=== PATIENT | male | born 1960 | race Caucasian/White ===

== ENCOUNTER 2020-09-08 08:39 | Emergency (ER) | payer OTHER ==
[~2020-09-08] VITALS: Ht 180 cm; Wt 116.0 kg
[2020-09-08 09:28] LABS: BILIRUBIN,URINE NEGATIVE (NEGATIVE); CLARITY,URINE CLEAR; COLOR,URINE YELLOW; GLUCOSE, URINE (UA) 3+ (NEGATIVE); KETONES,URINE TRACE (NEGATIVE); LEUKOCYTE ESTERASE ,URINE NEGATIVE (NEGATIVE); NITRITE,URINE NEGATIVE (NEGATIVE); PH,URINE 5.5 (5-9); PROTEIN,URINE TRACE (NEGATIVE)
[2020-09-08 09:28] LABS: BASOPHILS # (AUTO) 0.1 10^3/uL (0.0-0.1); BASOPHILS % (AUTO) 1 % (0-10); EOSINOPHILS # (AUTO) 0.1 10^3/uL (0.0-0.3); EOSINOPHILS % (AUTO) 1 % (0-10); HEMATOCRIT 45 % (40-54); HEMOGLOBIN 15.8 g/dL (13.3-17.7); LYMPHOCYTES # (AUTO) 1.6 X 10^3 (1.0-4.0); LYMPHOCYTES % (AUTO) 19 % (12-44); MEAN CORPUSCULAR HEMOGLOBIN 29 pg (25-34); MEAN CORPUSCULAR HGB CONC 35 g/dL (32-36); MEAN CORPUSCULAR VOLUME 83 fL (80-99); MEAN PLATELET VOLUME 9.4 fL (9.0-12.2); MONOCYTES # (AUTO) 0.6 X 10^3 (0.0-1.0); MONOCYTES % (AUTO) 7 % (0-12); NEUTROPHILS # (AUTO) 6.1 X 10^3 (1.8-7.8); NEUTROPHILS % (AUTO) 72 % (42-75); PLATELET COUNT 243 10^3/uL (130-400); WHITE BLOOD COUNT 8.5 10^3/uL (4.3-11.0)
[2020-09-08 09:29] LABS: ALBUMIN 4.4 GM/DL (3.2-4.5); CHLORIDE 102 MMOL/L (98-107); SODIUM 139 MMOL/L (135-145)
[2020-09-08 09:31] LABS: CALCIUM 9.8 MG/DL (8.5-10.1)
[2020-09-08 09:32] LABS: GLUCOSE 340 MG/DL (70-105); TOTAL PROTEIN 7.8 GM/DL (6.4-8.2)
[2020-09-08 09:33] LABS: CARBON DIOXIDE 21 MMOL/L (21-32)
[2020-09-08 09:34] LABS: BILIRUBIN,TOTAL 1.2 MG/DL (0.1-1.0)
[2020-09-08 09:35] LABS: ALKALINE PHOSPHATASE 85 U/L (40-136); CREATININE SERUM 1.07 MG/DL (0.60-1.30); GFR ESTIMATED > 60
[2020-09-08 09:37] LABS: BUN/CREATININE RATIO 18
[2020-09-08 09:38] LABS: ALANINE AMINOTRANSFERASE 58 U/L (0-55)
[2020-09-08 09:39] LABS: LIPASE 22 U/L (8-78)
[2020-09-08 09:45] LABS: AMORPHOUS SEDIMENT,UR FEW AMOR URATES /LPF; BACTERIA,URINE TRACE /HPF; SQUAMOUS EPITHELIAL CELL,UR 0-2 /HPF; WBC,URINE 0-2 /HPF
[2020-09-08] MEDS ORDERED: ONDANSETRON 4 MG/2 ML (SDV) Z0FRAN IVP ONE (09:45)
[2020-09-08] MEDS ORDERED: fentaNYL INJ 100 MCG/2 ML AMP IVP ONE ×2 (09:45→12:00)
[2020-09-08] MEDS ORDERED: NS IV 1000 ML 1,000 ML IV SCH (09:45)
[2020-09-08] MEDS ORDERED: NS IV 1000 ML 1,000 ML IV ONE (09:45)
[2020-09-08] MEDS ORDERED: inSUlin (REGULAR) HUMAN 1 UNIT/0.01 ML (CHARGE PER UNIT) SC ONE (10:00)
[2020-09-08] MEDS ORDERED: HOLD METFORMIN - RECEIVED CONTRAST 20 ML VIAL IV SCH (10:00)
[2020-09-08] MEDS ORDERED: NS 100 ML (IVPB) BAG IV ONE (10:00)
[2020-09-08] MEDS ORDERED: NS IV 1000 ML 1,000 ML ONE (10:00)
[2020-09-08] MEDS ORDERED: IOHEXOL 350 MG/ML 100 ML (OMNIPAQUE 350) VIAL IV ONE (10:00)
[2020-09-08] MEDS ORDERED: CATHETER FLUSH 10 ML SYR IV PRN (10:00)
--- NOTE | 2020-09-08 10:18 | ED Abdominal Pain ---
General Chief Complaint: Abdominal/GI Problems Stated Complaint: ABD PAIN Nursing Triage Note: PT CO OF ABD PAIN R SIDED 12/06. PT IS VERY DIAPHORETIC, PT STATES WAS SEEN [place] [facility] [place]ERDAY NO BLOOD WORK DONE. CT DONE AND PT WAS GIVEN ANTIBIOTIC SAID HAD POCKETS ON COLON. PT STILL FEELING PAIN 12/06 Source of Information: Patient Exam Limitations: No Limitations History of Present Illness Date Seen by Provider: Sep 08, 2020 Time Seen by Provider: 09:15 Initial Comments Patient to ER by private conveyance from home with chief complaint that he is having some right lower quadrant abdominal pain nonradiating. He has poor appetite has been sweating and chilling but has never had a fever above 100. He is having some nausea no vomiting presently. Normal bowel movements past with his last 1 yesterday. Is passing gas. He has never had a colonoscopy. He went to the [place] to have this checked out yesterday since has been going on for about 10 days and they did a urinalysis and a CT scan and did not see anything. His appendix and gallbladder are intact. They did not do any blood work. The only abdominal surgeries he had was for his lumbar sacral cage and he is concerned that this might be related to that although it was years ago. Allergies and Home Medications Allergies Coded Allergies: Fish Containing Products (Verified Allergy, Unknown, 09/08/20) amitriptyline (Verified Allergy, Unknown, 09/08/20) atorvastatin (Verified Allergy, Unknown, 09/08/20) buprenorphine (Verified Allergy, Unknown, 09/08/20) dulaglutide (Verified Allergy, Unknown, 09/08/20) hydroxyzine (Verified Allergy, Unknown, 09/08/20) naloxone (Verified Allergy, Unknown, 09/08/20) rosuvastatin (Verified Allergy, Unknown, 09/08/20) Patient Home Medication List Home Medication List Reviewed: Yes Review of Systems Review of Systems Constitutional: No chills; diaphoresis; No malaise EENTM: No Blurred Vision, No Double Vision Respiratory: Denies Cough, Denies Shortness of Air Cardiovascular: Denies Chest Pain, Denies Lightheadedness Gastrointestinal: Denies Constipated, Denies Diarrhea; Nausea, Poor Appetite; Denies Poor Fluid Intake, Denies Vomiting Genitourinary: Denies Burning, Denies Discharge Musculoskeletal: back pain; No joint pain Skin: No pruritus, No rash Psychiatric/Neurological: Denies Headache, Denies Numbness All Other Systems Reviewed Negative Unless Noted: Yes Past Gcqvamd-Yzsery-Dnakka Hx Patient Social History Tobacco Use?: No Use of E-Cig and/or Vaping dev: No Substance use?: No Alcohol Use?: No Pt feels they are or have been: No Immunizations Up To Date Second COVID19 Vaccination Marcos: BOTH VACCINES COVID19 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 oz. kg; 35.00 BMI Method: General Appearance: moderate distress, obese HEENT: PERRL/EOMI, pharynx normal Neck: non-tender, full range of motion, supple, normal inspection Respiratory: lungs clear, normal breath sounds, no respiratory distress, no accessory muscle use Cardiovascular: normal peripheral pulses, regular rate, rhythm Gastrointestinal: normal bowel sounds, soft, tenderness (Right lower quadrant mild tenderness to palpation without rebound tenderness, Rovsing sign or Sotelo sign. No psoas sign or other mesenteric signs.) Extremities: normal range of motion, non-tender, normal inspection, no pedal edema, normal capillary refill Back: normal inspection, no CVA tenderness, no vertebral tenderness, muscle spasm (Right paravertebral L2-L4 tenderness to palpation) Neurologic/Psychiatric: alert, normal mood/affect, oriented x 3 Skin: normal color, warm/dry Focused Exam Lactate Level 09/08/20 09:55: Lactic Acid Level 1.72 Lactic Acid Level Laboratory Tests Test 09/08/20 09:55 Lactic Acid Level 1.72 MMOL/L (0.50-2.00) Procedures/Interventions Progress Using a 27-gauge 1/2 inch needle we cleaned the site of maximal tenderness over his right paraspinous lumbar spine with alcohol. We then inserted the needle and aspirated nothing. We injected an admixture of 1 cc Marcaine half percent and Depo-Medrol 40 mg/mL 1 mL. Patient tolerated procedure well. A sterile bandage was placed Progress/Results/Core Measures Results/Orders Lab Results Laboratory Tests Test 09/08/20 09:10 09/08/20 09:21 09/08/20 09:55 09/08/20 12:18 Range/Units White Blood Count 8.5 4.3-11.0 10^3/uL Red Blood Count 5.45 4.30-5.52 10^6/uL Hemoglobin 15.8 13.3-17.7 g/dL Hematocrit 45 40-54 % Mean Corpuscular Volume 83 80-99 fL Mean Corpuscular Hemoglobin 29 25-34 pg Mean Corpuscular Hemoglobin Concent 35 32-36 g/dL Red Cell Distribution Width 13.2 10.0-14.5 % Platelet Count 243 130-400 10^3/uL Mean Platelet Volume 9.4 9.0-12.2 fL Immature Granulocyte % (Auto) 0 % Neutrophils (%) (Auto) 72 42-75 % Lymphocytes (%) (Auto) 19 12-44 % Monocytes (%) (Auto) 7 0-12 % Eosinophils (%) (Auto) 1 0-10 % Basophils (%) (Auto) 1 0-10 % Neutrophils # (Auto) 6.1 1.8-7.8 X 10^3 Lymphocytes # (Auto) 1.6 1.0-4.0 X 10^3 Monocytes # (Auto) 0.6 0.0-1.0 X 10^3 Eosinophils # (Auto) 0.1 0.0-0.3 10^3/uL Basophils # (Auto) 0.1 0.0-0.1 10^3/uL Immature Granulocyte # (Auto) 0.0 0.0-0.1 10^3/uL Sodium Level 139 135-145 MMOL/L Potassium Level 5.0 3.6-5.0 MMOL/L Chloride Level 102 98-107 MMOL/L Carbon Dioxide Level 21 21-32 MMOL/L Anion Gap 16 H 5-14 MMOL/L Blood Urea Nitrogen 19 H 7-18 MG/DL Creatinine 1.07 0.60-1.30 MG/DL Estimat Glomerular Filtration Rate > 60 BUN/Creatinine Ratio 18 Glucose Level 340 H 70-105 MG/DL Calcium Level 9.8 8.5-10.1 MG/DL Corrected Calcium 9.5 8.5-10.1 MG/DL Total Bilirubin 1.2 H 0.1-1.0 MG/DL Aspartate Amino Transf (AST/SGOT) 45 H 5-34 U/L Alanine Aminotransferase (ALT/SGPT) 58 H 0-55 U/L Alkaline Phosphatase 85 40-136 U/L C-Reactive Protein High Sensitivity 0.48 0.00-0.50 MG/DL Total Protein 7.8 6.4-8.2 GM/DL Albumin 4.4 3.2-4.5 GM/DL Lipase 22 8-78 U/L Urine Color YELLOW Urine Clarity CLEAR Urine pH 5.5 5-9 Urine Specific Wirtz >=1.030 1.016-1.022 Urine Protein TRACE H NEGATIVE Urine Glucose (UA) 3+ H NEGATIVE Urine Ketones TRACE H NEGATIVE Urine Nitrite NEGATIVE NEGATIVE Urine Bilirubin NEGATIVE NEGATIVE Urine Urobilinogen 0.2 < = 1.0 MG/DL Urine Leukocyte Esterase NEGATIVE NEGATIVE Urine RBC (Auto) NEGATIVE NEGATIVE Urine RBC NONE /HPF Urine WBC 0-2 /HPF Urine Squamous Epithelial Cells 0-2 /HPF Urine Crystals PRESENT H /LPF Urine Amorphous Sediment FEW CHUNG URATES H /LPF Urine Bacteria TRACE /HPF Urine Casts NONE /LPF Urine Mucus NEGATIVE /LPF Urine Culture Indicated NO Lactic Acid Level 1.72 0.50-2.00 MMOL/L Glucometer 99 70-110 MG/DL My Orders Orders - ADELFO RAMOS Ua Culture If Indicated (09/08/20 08:43) Cbc With Automated Diff (09/08/20 09:07) Comprehensive Metabolic Panel (09/08/20 09:07) Hs C Reactive Protein (09/08/20 09:07) Lipase (09/08/20 09:07) Fentanyl Inj (Sublimaze Injection) (09/08/20 09:45) Ct Abd/Pelv W (Appendicitis) (09/08/20 09:41) Ed Iv/Invasive Line Start (09/08/20 09:41) Ns Iv 1000 Ml (Sodium Chloride 0.9%) (09/08/20 09:45) Ns Iv 1000 Ml (Sodium Chloride 0.9%) (09/08/20 09:45) Ondansetron Injection (Zofran Injectio (09/08/20 09:45) Lactic Acid Analyzer (09/08/20 09:41) Insulin (Regular) Human (Novolin R (Per (09/08/20 10:00) Iohexol Injection (Omnipaque 350 Mg/Ml 1 (09/08/20 10:00) Di Iv Start (Assessment) .IV start (09/08/20 10:00) Received Contrast (Hold Metformin- Contr (09/08/20 10:00) Sodium Chloride Flush (Catheter Flush Sy (09/08/20 10:00) Ns (Ivpb) (Sodium Chloride 0.9% Ivpb Bag (09/08/20 10:00) Ns Iv 1000 Ml (Sodium Chloride 0.9%) (09/08/20 10:00) Methylprednisolone Acetate Inj (Depo-Med (09/08/20 12:00) Accucheck Stat ONCE (09/08/20 11:51) Medications Given in ED Current Medications Medications Dose Ordered Sig/Tiffany Route Start Time Stop Time Status Last Admin Dose Admin Fentanyl Citrate 50 mcg ONCE ONCE IVP 09/08/20 09:45 09/08/20 09:46 DC 09/08/20 10:05 50 MCG Insulin Human Regular 10 unit ONCE ONCE SC 09/08/20 10:00 09/08/20 10:01 DC 09/08/20 10:06 10 UNIT Iohexol 100 ml ONCE ONCE IV 09/08/20 10:00 09/08/20 10:05 DC 09/08/20 10:19 100 ML Methylprednisolone Acetate 40 mg ONCE ONCE IA 09/08/20 12:00 09/08/20 12:01 DC 09/08/20 12:18 40 MG Ondansetron HCl 4 mg ONCE ONCE IVP 09/08/20 09:45 09/08/20 09:46 DC 09/08/20 10:05 4 MG Sodium Chloride 100 ml ONCE ONCE IV 09/08/20 10:00 09/08/20 10:05 DC 09/08/20 10:19 80 ML Sodium Chloride 1,000 ml @ 0 mls/hr Q0M ONCE IV 09/08/20 09:45 09/08/20 09:46 DC 09/08/20 10:05 1,000 MLS/HR Vital Signs/I&O 09/08/20 08:58 Temp 35.7 Pulse 71 Resp 18 B/P (MAP) 139/82 (101) Pulse Ox 96 Blood Pressure Mean: 101 Progress Progress Note #1: Time: 10:16 Progress Note Although his vital signs are stable he is quite sweaty and appears uncomfortable. We'll give him some fentanyl and some fluids as he appears to be dehydrated clinically. Concerns involve appendicitis, adhesions, kidney stone, ureteral infection, less likely ischemic mesentery so we'll get a lactate. He does not have any other history of coronary disease or peripheral arterial disease. He does however have diabetes. We'll give him 10 units of regular insulin for his blood sugar of 340. Last oral intake was yesterday. Progress Note #2: Time: 11:52 Progress Note Patient's pain is still positional. Poking around in his back we did find a point of maximal tenderness lateral to his lumbar spine on the right side which reproduces his symptoms. Suspect perhaps a radiculopathy given his history of back problems. We are going to try an injection of some Marcaine and Depo-Medro l. Recheck his sugars and get him some appropriate insulin. Progress Note #3: Time: 12:50 Progress Note After an injection we went back to check on him he said he is having some improvement although he still having quite a bit of pain. We will send him home with some hydrocodone to do suspect now patient is not having an intra-abdominal process with his normal vital signs normal labs and unremarkable CT of the abdomen and pelvis. I suspect instead he has an lumbar radicular impingement that is reproducible on the right side with paravertebral muscle spasm. We did offer some muscle relaxants and the patient says he has Robaxin at home but he does not like taking it because it makes him nauseated. We will put him out on hydrocodone and he has an appointment with his primary care provider on . We did offer to send him to an orthopedic surgeon and physical therapy locally but he says he would do that through the [place]. He is not having any neurologic deficit or red flag symptoms necessitating an MRI at this moment however it would be reasonable to consider an MRI outpatient if he is not seeing improvement on the steroid injection. His repeat Accu-Chek was 99 so his insulin is working well. Diagnostic Imaging Diagonstic Imaging: CT Plain Films/CT/US/NM/MRI: abdomen, pelvis Comments [facility] [place], [place] NAME: MARY JANE EGAN MED REC#: [id number] PT STATUS: REG ER : 1960 PHYSICIAN: ADELFO RAMOS MD ADMIT DATE: 09/08/20/ER Draft Date of Exam:09/08/20 CT ABD/PELV W (APPENDICITIS) PROCEDURE: CT abdomen and pelvis with contrast, rule out appendicitis. TECHNIQUE: Multiple contiguous axial images were obtained through the abdomen and pelvis after the administration of intravenous contrast. All CT scans use one or more of the following dose optimizing techniques: Automated exposure control, MA and/or KvP adjustment based on patient size and exam type or iterative reconstruction. INDICATION: Right lower quadrant pain. COMPARISON: None available. FINDINGS: Median sternotomy. Prosthetic aortic valve. Tiny calcified granuloma noted within the lung bases. However, multiple additional sub-4 mm pulmonary nodules are present within the bilateral lung bases. No significant hiatal hernia. Diffusely decreased density throughout the liver. The liver is otherwise unremarkable. The spleen is unremarkable. The adrenal glands are unremarkable. The pancreas is unremarkable. The gallbladder is unremarkable. Bilateral renal cysts and additional hypodensities are present. Hypodensity within the inferior pole of the left kidney demonstrates Hounsfield units of near 20, and there is suggestion of a thin peripheral calcification in the wall on the coronal view. Tiny hyperdensities are seen within the central aspect of the bilateral kidneys, right greater than left. This is most prominent on series 601, image 72. Mild bilateral perinephric fat stranding. No hydroureteronephrosis. Scattered vascular calcifications without aneurysmal dilatation of the abdominal aorta. Small fat-containing umbilical hernia. The urinary bladder is unremarkable. The prostate gland is minimally enlarged. The appendix is unremarkable. No bowel obstruction or pneumatosis. No significant adenopathy, free air, or free fluid within the abdomen or pelvis. Mild colonic diverticulosis without CT evidence of diverticulitis. Postsurgical changes at L5/S1. Scattered osseous degenerative changes without acute osseous abnormality. IMPRESSION: The appendix is unremarkable. Bilateral renal cysts and additional hypodensities which are not completely characterized, though may still simply relate to cysts, including within the inferior pole of the left kidney. Renal ultrasound is recommended for further evaluation. Bilateral perinephric fat stranding, which may relate to senescent changes and chronic renal disease, though could also relate to underlying pyelonephritis. Recommend correlation with urinary analysis. Tiny hyperdensities within the central aspect of the bilateral kidneys, favored to relate to early excretion of contrast, though tiny nonobstructing renal calculi would be an additional consideration. Fatty infiltration of the liver. Tiny sub-4 mm bilateral pulmonary nodules with additional small benign calcified granuloma within the lung bases. Recommend a follow-up CT of the chest in one year to ensure stability. Dictated on workstation # [id number] Dict: 09/08/20 1031 Trans: 09/08/20 1046 [id number] Interpreted by: AUBRIE COLUNGA MD Electronically signed by: Reviewed: Reviewed by Me Departure Impression Primary Impression: Lumbar radiculopathy, acute Disposition: 01 HOME, SELF-CARE Condition: Stable Departure-Patient Inst. Decision time for Depature: 12:52 Referrals: NO,LOCAL PHYSICIAN (PCP/Family) Primary Care Physician Patient Instructions: Radiculopathy (DC), Back Stretches on Floor Add. Discharge Instructions: Drink plenty of fluids. Hydrocodone 1 tablet every 6 hours as necessary to keep you functional and relieve pain. Tylenol 650 mg every 8 hours as necessary for pain. Topical creams and IcyHot as well as heating pads over your back. Obtain a back brace and wear it on the days that it helps. Hydrocodone will cause drowsiness and constipation so do not mix with alcohol and make sure you are using MiraLAX to stay regular. Keep your follow-up appoint with your doctor and discuss your suspected nerve root impingement. Consider physical therapy and other modalities to manage your symptoms. The steroid should hang out for about 5 to 7 days in your back and will increase your blood sugar as well as may cause an increased feeling of energy and difficulty getting to sleep at night. All discharge instructions reviewed with patient and/or family. Voiced understanding. Scripts Hydrocodone/Acetaminophen (Hydrocodone-Acetamin 5-325 mg) 1 Each Tablet 1 TAB PO Q6H PRN for PAIN-MODERATE (5-7), #20 TAB 0 Refills Prov: ADELFO RAMOS 09/08/20 ADELFO RAMOS Sep 08, 2020 10:18
--- NOTE | 2020-09-08 10:46 | Diagnostic Imaging Report ---
PROCEDURE: CT abdomen and pelvis with contrast, rule out appendicitis. TECHNIQUE: Multiple contiguous axial images were obtained through the abdomen and pelvis after the administration of intravenous contrast. All CT scans use one or more of the following dose optimizing techniques: Automated exposure control, MA and/or KvP adjustment based on patient size and exam type or iterative reconstruction. INDICATION: Right lower quadrant pain. COMPARISON: None available. FINDINGS: Median sternotomy. Prosthetic aortic valve. Tiny calcified granuloma noted within the lung bases. However, multiple additional sub-4 mm pulmonary nodules are present within the bilateral lung bases. No significant hiatal hernia. Diffusely decreased density throughout the liver. The liver is otherwise unremarkable. The spleen is unremarkable. The adrenal glands are unremarkable. The pancreas is unremarkable. The gallbladder is unremarkable. Bilateral renal cysts and additional hypodensities are present. Hypodensity within the inferior pole of the left kidney demonstrates Hounsfield units of near 20, and there is suggestion of a thin peripheral calcification in the wall on the coronal view. Tiny hyperdensities are seen within the central aspect of the bilateral kidneys, right greater than left. This is most prominent on series 601, image 72. Mild bilateral perinephric fat stranding. No hydroureteronephrosis. Scattered vascular calcifications without aneurysmal dilatation of the abdominal aorta. Small fat-containing umbilical hernia. The urinary bladder is unremarkable. The prostate gland is minimally enlarged. The appendix is unremarkable. No bowel obstruction or pneumatosis. No significant adenopathy, free air, or free fluid within the abdomen or pelvis. Mild colonic diverticulosis without CT evidence of diverticulitis. Postsurgical changes at L5/S1. Scattered osseous degenerative changes without acute osseous abnormality. IMPRESSION: The appendix is unremarkable. Bilateral renal cysts and additional hypodensities which are not completely characterized, though may still simply relate to cysts, including within the inferior pole of the left kidney. Renal ultrasound is recommended for further evaluation. Bilateral perinephric fat stranding, which may relate to senescent changes and chronic renal disease, though could also relate to underlying pyelonephritis. Recommend correlation with urinary analysis. Tiny hyperdensities within the central aspect of the bilateral kidneys, favored to relate to early excretion of contrast, though tiny nonobstructing renal calculi would be an additional consideration. Fatty infiltration of the liver. Tiny sub-4 mm bilateral pulmonary nodules with additional small benign calcified granuloma within the lung bases. Recommend a follow-up CT of the chest in one year to ensure stability. Dictated by: Dictated on workstation # [id number]
[2020-09-08] MEDS ORDERED: methylPREDNISolone 40 MG/ML (DEPO MEDROL) VIAL IA ONE (12:00)
[2020-09-08] MEDS ORDERED: ACHD5005 PO (12:55)
[2020-09-08 13:20] VITALS: BP 139/82
== END 2020-09-08 13:20 | disposition home or self-care (01) ==
LOC: ER 08:41
DX: M54.16 Radiculopathy, lumbar region (principal); E66.9 Obesity, unspecified; Z68.35 Body mass index [BMI] 35.0-35.9, adult
CPT/HCPCS: 36415; 74177; 80053; 81000; 82947; 83605; 83690; 85025; 86141

== ENCOUNTER 2020-09-20 23:40 | Observation (INO) | payer MEDICARE, OTHER ==
[~2020-09-20] VITALS: Ht 180 cm; Wt 111.5 kg
[~2020-09-20 23:40] MED LIST: ACHD5005 PO
[2020-09-21 00:11] LABS: BILIRUBIN,URINE NEGATIVE (NEGATIVE); CLARITY,URINE CLEAR; COLOR,URINE YELLOW; GLUCOSE, URINE (UA) 3+ (NEGATIVE); KETONES,URINE 1+ (NEGATIVE); LEUKOCYTE ESTERASE ,URINE NEGATIVE (NEGATIVE); NITRITE,URINE NEGATIVE (NEGATIVE); PROTEIN,URINE TRACE (NEGATIVE)
[2020-09-21] MEDS ORDERED: NITROGLYCERIN 2% OINT 1 GM UNIT DOSE PACKET TOP ONE (00:15)
[2020-09-21 00:23] LABS: BASOPHILS # (AUTO) 0.1 10^3/uL (0.0-0.1); BASOPHILS % (AUTO) 1 % (0-10); EOSINOPHILS % (AUTO) 0 % (0-10); HEMATOCRIT 42 % (40-54); HEMOGLOBIN 14.4 g/dL (13.3-17.7); LYMPHOCYTES # (AUTO) 1.8 10^3/uL (1.0-4.0); LYMPHOCYTES % (AUTO) 27 % (12-44); MEAN CORPUSCULAR HEMOGLOBIN 29 pg (25-34); MEAN CORPUSCULAR HGB CONC 34 g/dL (32-36); MEAN CORPUSCULAR VOLUME 86 fL (80-99); MEAN PLATELET VOLUME 9.4 fL (9.0-12.2); MONOCYTES # (AUTO) 0.6 10^3/uL (0.0-1.0); MONOCYTES % (AUTO) 9 % (0-12); NEUTROPHILS # (AUTO) 4.2 10^3/uL (1.8-7.8); NEUTROPHILS % (AUTO) 62 % (42-75); PLATELET COUNT 242 10^3/uL (130-400); WHITE BLOOD COUNT 6.7 10^3/uL (4.3-11.0)
[2020-09-21 00:24] LABS: AMPHETAMINE SCREEN, URINE NEGATIVE (NEGATIVE); BARBITURATE SCREEN URINE NEGATIVE (NEGATIVE); BENZODIAZEPINES SCREEN URINE NEGATIVE (NEGATIVE); CANNABINOID SCREEN, URINE POSITIVE (NEGATIVE); COCAINE SCREEN URINE NEGATIVE (NEGATIVE); METHADONE STAT NEGATIVE (NEGATIVE); METHAMPHETAMINE SCREEN URINE S NEGATIVE (NEGATIVE); OPIATE SCREEN URINE NEGATIVE (NEGATIVE); OXYCODONE STAT NEGATIVE (NEGATIVE); PROPOXYPHENE STAT NEGATIVE (NEGATIVE); TRICYCLIC ANTIDEPRESSANTS SCRE NEGATIVE (NEGATIVE)
[2020-09-21 00:25] LABS: BACTERIA,URINE NEGATIVE /HPF
[2020-09-21 00:35] LABS: CHLORIDE 106 MMOL/L (98-107); POTASSIUM 3.5 MMOL/L (3.6-5.0); SODIUM 143 MMOL/L (135-145)
[2020-09-21 00:36] LABS: ALBUMIN 4.3 GM/DL (3.2-4.5)
[2020-09-21 00:37] LABS: AMYLASE 33 U/L (25-125); CALCIUM 9.5 MG/DL (8.5-10.1)
[2020-09-21 00:38] LABS: AMMONIA 39 UMOL/L (11-32); GLUCOSE 271 MG/DL (70-105); TOTAL PROTEIN 7.2 GM/DL (6.4-8.2)
[2020-09-21 00:39] LABS: CARBON DIOXIDE 19 MMOL/L (21-32); FIBRIN DEGRADATION PRODUCTS 0.56 UG/ML (0.00-0.49); PROTHROMBIN TIME PATIENT 13.5 SEC (12.2-14.7)
[2020-09-21 00:40] LABS: BILIRUBIN,TOTAL 1.1 MG/DL (0.1-1.0)
[2020-09-21 00:42] LABS: ALKALINE PHOSPHATASE 67 U/L (40-136); CREATININE SERUM 0.98 MG/DL (0.60-1.30); GFR ESTIMATED 78
[2020-09-21 00:43] LABS: BUN/CREATININE RATIO 24
[2020-09-21 00:44] LABS: ACETAMINOPHEN < 10 UG/ML (10-30)
[2020-09-21 00:45] LABS: ALANINE AMINOTRANSFERASE 53 U/L (0-55); MAGNESIUM 2.1 MG/DL (1.6-2.4)
[2020-09-21 00:46] LABS: CREATINE KINASE 277 U/L (30-200); LIPASE 20 U/L (8-78)
[2020-09-21 00:54] LABS: CREATINE KINASE MB 3.1 NG/ML (<6.6)
[2020-09-21] MEDS ORDERED: OLANZapine 5 MG ODT (ZyPREXA ZYDIS) PO ONE ×2 (01:00→02:15)
[2020-09-21 01:06] LABS: TSH (THYROID ANALYZER) 0.79 UIU/ML (0.35-4.94)
[2020-09-21] MEDS ORDERED: ASPIRIN 81 MG CHEW (CHILDREN'S ASA) PO ONE (02:15)
[2020-09-21] MEDS ORDERED: ENOXAPARIN 40 MG/0.4 ML (LOVENOX) SYR SC ONE (02:30)
[2020-09-21] MEDS ORDERED: meTOprolol SUCCINATE 100 MG (TOPROL XL) TAB PO ONE (02:30)
[2020-09-21] MEDS ORDERED: ENOXAPARIN 80 MG/0.8 ML (LOVENOX) SYR SC ONE (02:30)
[2020-09-21] MEDS ORDERED: NITROGLYCERIN 2% OINT 1 GM UNIT DOSE PACKET ONE (02:37)
[2020-09-21 03:01] VITALS: BP 171/89
--- NOTE | 2020-09-21 03:17 | ED General ---
General Chief Complaint: Altered Mental Status Stated Complaint: ELEVATED TROP / HTN / IDDM / PSYCHOSIS Nursing Triage Note: TO ED [facility]IA [facility] TO ROOM 5. PER EMS PT DROVE TO FIRE STATION. PT DENIED CP THERE AND DENIES CP AT ARRIVAL TO ER, BUT EMS STATES THEY WERE PAGED OUT FOR CHEST PAIN. PT DOES NOT STATE COMPLAINT TO PRESENTING TO FIRE STATION OR ER. PT IS RAMBLING, NONSENSICAL. Source of Information: EMS, Police Exam Limitations: Other (PT IS UNABLE TO PROVIDE ANY INFORMATION--PT IS CONFUSED, TALKING RAPIDLY, NON-STOP AND NON-SENSICAL. ) History of Present Illness Date Seen by Provider: Sep 21, 2020 Allergies and Home Medications Allergies Coded Allergies: Fish Containing Products (Verified Allergy, Unknown, 09/08/20) amitriptyline (Verified Allergy, Unknown, 09/08/20) atorvastatin (Verified Allergy, Unknown, 09/08/20) buprenorphine (Verified Allergy, Unknown, 09/08/20) dulaglutide (Verified Allergy, Unknown, 09/08/20) hydroxyzine (Verified Allergy, Unknown, 09/08/20) naloxone (Verified Allergy, Unknown, 09/08/20) rosuvastatin (Verified Allergy, Unknown, 09/08/20) Home Medications Hydrocodone/Acetaminophen 1 Each Tablet, 1 TAB PO Q6H PRN for PAIN-MODERATE (5- 7) Prescribed by: ADELFO RAMOS on 09/08/20 1255 Past Ztirsjm-Owwgdf-Tyibzn Hx Patient Social History Tobacco Use?: No Substance use?: Yes Substance type: Marijuana Alcohol Use?: No Pt feels they are or have been: No Immunizations Up To Date 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 oz. kg; 35.00 BMI Method: Progress/Results/Core Measures Suspected Sepsis SIRS Temperature: Pulse: 85 Respiratory Rate: 20 Laboratory Tests 09/20/20 00:00: White Blood Count 6.7 Blood Pressure 171 /89 Mean: 136 Laboratory Tests 09/20/20 00:00: Creatinine 0.98, INR Comment 1.0, Platelet Count 242, Total Bilirubin 1.1H Results/Orders Lab Results Laboratory Tests Test 09/20/20 00:00 09/20/20 23:59 09/21/20 00:03 Range/Units White Blood Count 6.7 4.3-11.0 10^3/uL Red Blood Count 4.92 4.30-5.52 10^6/uL Hemoglobin 14.4 13.3-17.7 g/dL Hematocrit 42 40-54 % Mean Corpuscular Volume 86 80-99 fL Mean Corpuscular Hemoglobin 29 25-34 pg Mean Corpuscular Hemoglobin Concent 34 32-36 g/dL Red Cell Distribution Width 13.2 10.0-14.5 % Platelet Count 242 130-400 10^3/uL Mean Platelet Volume 9.4 9.0-12.2 fL Immature Granulocyte % (Auto) 0 % Neutrophils (%) (Auto) 62 42-75 % Lymphocytes (%) (Auto) 27 12-44 % Monocytes (%) (Auto) 9 0-12 % Eosinophils (%) (Auto) 0 0-10 % Basophils (%) (Auto) 1 0-10 % Neutrophils # (Auto) 4.2 1.8-7.8 10^3/uL Lymphocytes # (Auto) 1.8 1.0-4.0 10^3/uL Monocytes # (Auto) 0.6 0.0-1.0 10^3/uL Eosinophils # (Auto) 0.0 0.0-0.3 10^3/uL Basophils # (Auto) 0.1 0.0-0.1 10^3/uL Immature Granulocyte # (Auto) 0.0 0.0-0.1 10^3/uL Prothrombin Time 13.5 12.2-14.7 SEC INR Comment 1.0 0.8-1.4 Activated Partial Thromboplast Time 25 24-35 SEC D-Dimer 0.56 H 0.00-0.49 UG/ML Sodium Level 143 135-145 MMOL/L Potassium Level 3.5 L 3.6-5.0 MMOL/L Chloride Level 106 98-107 MMOL/L Carbon Dioxide Level 19 L 21-32 MMOL/L Anion Gap 18 H 5-14 MMOL/L Blood Urea Nitrogen 24 H 7-18 MG/DL Creatinine 0.98 0.60-1.30 MG/DL Estimat Glomerular Filtration Rate 78 BUN/Creatinine Ratio 24 Glucose Level 271 H 70-105 MG/DL Calcium Level 9.5 8.5-10.1 MG/DL Corrected Calcium 9.3 8.5-10.1 MG/DL Magnesium Level 2.1 1.6-2.4 MG/DL Total Bilirubin 1.1 H 0.1-1.0 MG/DL Aspartate Amino Transf (AST/SGOT) 34 5-34 U/L Alanine Aminotransferase (ALT/SGPT) 53 0-55 U/L Alkaline Phosphatase 67 40-136 U/L Ammonia 39 H 11-32 UMOL/L Total Creatine Kinase 277 H 30-200 U/L Creatine Kinase MB 3.1 <6.6 NG/ML Myoglobin 98.7 H 10.0-92.0 NG/ML Troponin I 0.051 H <0.028 NG/ML C-Reactive Protein High Sensitivity 0.46 0.00-0.50 MG/DL B-Type Natriuretic Peptide 19.7 <100.0 PG/ML Total Protein 7.2 6.4-8.2 GM/DL Albumin 4.3 3.2-4.5 GM/DL Amylase Level 33 25-125 U/L Lipase 20 8-78 U/L TSH [place] Testing 0.79 0.35-4.94 UIU/ML Acetaminophen Level < 10 L 10-30 UG/ML Serum Alcohol < 10 <10 MG/DL Glucometer 263 H 70-110 MG/DL Urine Color YELLOW Urine Clarity CLEAR Urine pH 5.0 5-9 Urine Specific [place] >=1.030 1.016-1.022 Urine Protein TRACE H NEGATIVE Urine Glucose (UA) 3+ H NEGATIVE Urine Ketones 1+ H NEGATIVE Urine Nitrite NEGATIVE NEGATIVE Urine Bilirubin NEGATIVE NEGATIVE Urine Urobilinogen 0.2 < = 1.0 MG/DL Urine Leukocyte Esterase NEGATIVE NEGATIVE Urine RBC (Auto) NEGATIVE NEGATIVE Urine RBC NONE /HPF Urine WBC NONE /HPF Urine Squamous Epithelial Cells 2-5 /HPF Urine Crystals NONE /LPF Urine Bacteria NEGATIVE /HPF Urine Casts NONE /LPF Urine Mucus MODERATE H /LPF Urine Culture Indicated NO Urine Opiates Screen NEGATIVE NEGATIVE Urine Oxycodone Screen NEGATIVE NEGATIVE Urine Methadone Screen NEGATIVE NEGATIVE Urine Propoxyphene Screen NEGATIVE NEGATIVE Urine Barbiturates Screen NEGATIVE NEGATIVE Ur Tricyclic Antidepressants Screen NEGATIVE NEGATIVE Urine Phencyclidine Screen NEGATIVE NEGATIVE Urine Amphetamines Screen NEGATIVE NEGATIVE Urine Methamphetamines Screen NEGATIVE NEGATIVE Urine Benzodiazepines Screen NEGATIVE NEGATIVE Urine Cocaine Screen NEGATIVE NEGATIVE Urine Cannabinoids Screen POSITIVE H NEGATIVE My Orders Orders - RAVI MCDUFFIE DO Accucheck Stat ONCE (09/20/20 23:49) Ed Iv/Invasive Line Start (09/20/20 23:49) Ekg Tracing (09/20/20 23:49) O2 (09/20/20 23:49) Monitor-Rhythm Ecg Trace Only (09/20/20 23:49) Acetaminophen (09/20/20 23:49) Alcohol (09/20/20 23:49) Ammonia (09/20/20 23:49) Amylase (09/20/20 23:49) BNP (09/20/20 23:49) Cbc With Automated Diff (09/20/20 23:49) Comprehensive Metabolic Panel (09/20/20 23:49) Creatine Kinase (09/20/20 23:49) Creatine Kinase Mb (09/20/20 23:49) Hs C Reactive Protein (09/20/20 23:49) Fibrin Degradation Products (09/20/20 23:49) Drug Screen Stat (Urine) (09/20/20 23:49) Lactic Acid Analyzer (09/20/20 23:49) Lipase (09/20/20 23:49) Magnesium (09/20/20 23:49) Protime With Inr (09/20/20 23:49) Partial Thromboplastin Time (09/20/20 23:49) Thyroid Analyzer (09/20/20 23:49) Ua Culture If Indicated (09/20/20 23:49) Myoglobin Serum (09/20/20 23:49) Troponin I (09/20/20 23:49) Nitroglycerin Ointment (Nitrobid Ointme (09/21/20 00:15) Ct Head Wo-R/O Stroke (09/21/20 00:13) Chest 1 View, Ap/Pa Only (09/21/20 00:13) Olanzapine Orally Dissolve Tab (Zyprexa (09/21/20 01:00) Medications Given in ED Current Medications Medications Dose Ordered Sig/Tiffany Route Start Time Stop Time Status Last Admin Dose Admin Nitroglycerin 1 inch ONCE ONCE TOP 09/21/20 00:15 09/21/20 00:16 DC 09/21/20 00:14 1 INCH Olanzapine 5 mg ONCE ONCE PO 09/21/20 01:00 09/21/20 01:01 DC 09/21/20 01:01 5 MG Vital Signs/I&O 09/20/20 23:54 Temp 36.7 Pulse 89 Resp 20 B/P (MAP) 197/106 (136) O2 Delivery Room Air Capillary Refill : Less Than 3 Seconds Blood Pressure Mean: 136 Point of Care Testing Finger Stick Blood Glucose: 263 Blood Glucose Action Taken: DR. MCDUFFIE NOTIFIED. ECG Initial ECG Impression Date: Sep 20, 2020 Initial ECG Impression Time: 23:43 Initial ECG Rate: 94 Initial ECG Rhythm: Normal Sinus (RBBB) Initial ECG Comparisson: No Previous ECG Available (BUT RBBB IS CHRONIC, PER [facility] ) Diagnostic Imaging Comments CXR--NO ACUTE PROCESS, PENDING RADIOLOGIST REVIEW CT HEAD--NO ACUTE PROCESS, PER [facility] VIA FAX AT 0134 AND 0152 Reviewed: Reviewed by Me Departure Communication (Admissions) Family Conversation 0145--SPOKE WITH FAN PT'S FRIEND. SHE LIVES IN [place], [place]. SHE REPORTS THAT PSYCHOSIS IS A CHRONIC PROBLEM, AND PT WAS JUST ADMITTED TO [facility] TO THE [facility], AND RELEASED ON Monday09/15/20 FOR PSYCHOSIS. SHE HAS BEEN STAYING HERE WITH HIM SINCE Monday09/17/20, UNTIL LAST NIGHT / SATU NIGHT 09/19/20. SHE STATES THAT HIS BEHAVIOR WAS THE SAME WHEN SHE LEFT LAST NIGHT, IT IS TONIGHT--TALKING NON-STOP, NOT MAKING SENSE, CONFUSED, RAMBLING. SHE STATES THIS IS A CHRONIC PROBLEM AND NOTHING NEW IN ANY WAY. SHE DOES NOT KNOW IF PT HAS BEEN TAKING HIS MEDICATIONS OR NOT. SHE DOES REPORT THAT SHE HAS TALKED WITH THE PATIENT THROUGHOUT THE DAY TODAY AND SHE STATES THAT HE HAS TAKEN NITROGLYCERINE A COUPLE OF TIMES TODAY. SHE REPORTS THAT PT'S OVER A YEAR AGO, AND HIS DOG IN THE LAST COUPLE OF WEEKS. 0150--CALLED [facility], SPOKE WITH DR. MARVIN, ER PHYSICIAN. THEY ARE CURRENTLY ON DIVERSION AND HAVE NO BEDS AVAILABLE. HE DOES VERIFY THAT THE RBBB SHOWING ON PT'S EKG TONIGHT IS CHRONIC. 0158--SPOKE WITH DR. DIAZ, HOSPITALIST, ACCEPTS PT FOR ADMIT. 0204--REPORT GIVEN TO E-ICU PHYSICIAN. NO ADDITIONAL RECOMMENDATIONS AT THIS TIME 0230--SPOKE WITH DR. MELTON FOR CARDIOLOGY CONSULT. RECOMMENDATIONS NOTED. Impression Primary Impression: Elevated troponin Additional Impressions: Uncontrolled hypertension Diabetes mellitus, insulin dependent (IDDM), uncontrolled Psychosis HX OF CAD WITH CABG Disposition: ADMITTED INPATIENT Condition: Stable Admissions Decision to Admit Reason: Admit from ER (General) Decision to Admit/Date: Sep 21, 2020 Time/Decision to Admit Time: 02:00 Departure-Patient Inst. Referrals: NO,LOCAL PHYSICIAN (PCP/Family) Primary Care Physician RAVI MCDUFFIE DO Sep 21, 2020 03:17
[2020-09-21] MEDS ORDERED: NS IV 1000 ML 1,000 ML ONE (03:22)
[2020-09-21] MEDS ORDERED: LORazepam INJ 2 MG/ML (ATIVAN) VIAL IV PRN (03:45)
[2020-09-21] MEDS ORDERED: OLANZapine 5 MG ODT (ZyPREXA ZYDIS) PO PRN (03:45)
[2020-09-21] MEDS ORDERED: hydrALAZINE (APESOLINE) 20 MG/ML VIAL IV PRN (03:45)
[2020-09-21] MEDS ORDERED: HALOPERIDOL 5 MG/ML (HALDOL) VIAL IM/IV PRN (03:45)
[2020-09-21] MEDS ORDERED: NS IV 1000 ML 1,000 ML IV SCH (03:45)
[2020-09-21] MEDS ORDERED: morphine INJ 4 MG/ML 1 ML (VIAL/SYRINGE) IV PRN (04:00)
[2020-09-21] MEDS ORDERED: ONDANSETRON 4 MG/2 ML (SDV) Z0FRAN IVP PRN (04:00)
[2020-09-21 04:49] LABS: BASOPHILS % (AUTO) 1 % (0-10); EOSINOPHILS % (AUTO) 0 % (0-10); HEMATOCRIT 39 % (40-54); HEMOGLOBIN 13.2 g/dL (13.3-17.7); LYMPHOCYTES # (AUTO) 1.4 10^3/uL (1.0-4.0); LYMPHOCYTES % (AUTO) 25 % (12-44); MEAN CORPUSCULAR HEMOGLOBIN 29 pg (25-34); MEAN CORPUSCULAR HGB CONC 34 g/dL (32-36); MEAN CORPUSCULAR VOLUME 87 fL (80-99); MEAN PLATELET VOLUME 9.3 fL (9.0-12.2); MONOCYTES # (AUTO) 0.5 10^3/uL (0.0-1.0); MONOCYTES % (AUTO) 8 % (0-12); NEUTROPHILS # (AUTO) 3.6 10^3/uL (1.8-7.8); NEUTROPHILS % (AUTO) 66 % (42-75); PLATELET COUNT 203 10^3/uL (130-400); WHITE BLOOD COUNT 5.6 10^3/uL (4.3-11.0)
[2020-09-21 05:04] LABS: POTASSIUM 3.5 MMOL/L (3.6-5.0)
[2020-09-21 05:05] LABS: CALCIUM 8.9 MG/DL (8.5-10.1)
[2020-09-21 05:09] LABS: CREATININE SERUM 0.85 MG/DL (0.60-1.30); PHOSPHORUS 3.1 MG/DL (2.3-4.7)
[2020-09-21 05:11] LABS: MAGNESIUM 2.1 MG/DL (1.6-2.4)
[2020-09-21] MEDS: POTASSIUM CL 10MEQ/50ML IVPB 50 ML IV SCH ×2 (05:33→07:12)
--- NOTE | 2020-09-21 05:55 | Diagnostic Imaging Report ---
Clinical indication: Patient with confusion and hypertension. Exam: Axial CT scan of the brain without IV contrast with coronal and sagittal reformatted images. Auto Exposure Controls were utilized during the CT exam to meet ALARA standards for radiation dose reduction. Comparison: None. Findings: There is skull streak artifact which obscures portions of the brainstem, posterior fossa, and portions of the brain near the skull. There is no evidence of acute cerebral infarct, intracranial hemorrhage, or gross mass effect. Mild brain parenchymal volume loss is seen. There are small patchy areas of low-attenuation white matter changes involving both cerebral hemispheres, likely representing mild chronic small vessel ischemic disease. There is normal arevalo-white matter distinction. There is no significant midline shift or herniation. There is no evidence of hydrocephalus. The basal cisterns are unremarkable. The skull, extracranial soft tissue, and orbits are unremarkable. The paranasal sinuses are unremarkable. Temporal bones show no significant abnormality. Impression: 1: Age-related brain parenchymal changes with no acute intracranial process. I agree with [facility] report. Dictated by: Dictated on workstation # [id number]
[2020-09-21] MEDS ORDERED: POTASSIUM CL 10MEQ/50ML IVPB 50 ML IV SCH (06:00)
[2020-09-21] MEDS ORDERED: inSUlin ASPART (NovoLOG) 1 UNIT/0.01 ML (CHARGE PER UNIT) SC SCH ×2 (06:00→11:00)
[2020-09-21] MEDS ORDERED: KCL 20 MEQ TAB (K-DUR) PO SCH (06:00)
[2020-09-21] MEDS ORDERED: MAGNESIUM 1 GM/100 ML IVPB 100 ML IV SCH (06:00)
--- NOTE | 2020-09-21 06:57 | Diagnostic Imaging Report ---
CHEST 1 VIEW, AP/PA ONLY Indication: Hypertension and altered mental status Comparison: None available Findings: No focal airspace disease in the visualized lungs. Please note that the posterior lower lobes are poorly evaluated by portable radiography. No pleural effusion or pneumothorax. Status post aortic valve replacement. Normal mediastinal contours. No cardiomegaly. Impression: 1. No acute cardiopulmonary process by portable radiography. Dictated by: Dictated on workstation # [id number]
--- NOTE | 2020-09-21 08:32 | Consultation-Cardiology ---
HPI-Cardiology Cardiology Consultation: Date of Consultation 09/21/20 Time Seen by a Provider: 08:45 Date of Admission 09-20-20 Attending Physician Latoya Donis MD Admitting Physician Tere,Local Physician Consulting Physician Lisa Vergara MD HPI: Chief Complaint: Chest pain Mr. Ivory is a 60 yr old male admitted to ICU 10 from the ED. He had driven himself to the fire department and reported chest pain and SOB. He was then transferred to [facility]. He is currently not reporting any chest pain at this time. His conversation at times is non-sensical. He is not reporting any chest pain at this time. He does report he has had cardiac w/u and testing at [place], [place]. He states he wishes to leave [place]. He reports he was recently hospitalized at the [place] following the passing of his dog d/t significant depression. No report of any chest pain or SOB at this time. No c/o palpitations. No c/o LE swelling. Review of Systems-Cardiology Review of Systems Constitutional: No chills, No fever Eyes: No vision change Ears/Nose/Throat: No epistaxis, No recent hearing loss Respiratory: As described under HPI Cardiovascular: As described under HPI Gastrointestinal: No diarrhea, No nausea, No vomiting Skin: No rash on exposed areas, No ulcerations on exposed areas Psychiatric/Neurological: As described under HPI; No syncope Hematologic: No bleeding abnormalities RJW-Fmvuvc-Jrzrci Hx Patient Social History Have you traveled recently?: No Alcohol Use?: No Substance type: Marijuana Pt feels they are or have been: No Past Medical History PMH As described under Assessment. Family Medical History Family Medical History: No reported family h/o CAD Allergies and Home Medications Allergies Coded Allergies: Fish Containing Products (Verified Allergy, Unknown, 09/08/20) amitriptyline (Verified Allergy, Unknown, 09/08/20) atorvastatin (Verified Allergy, Unknown, 09/08/20) buprenorphine (Verified Allergy, Unknown, 09/08/20) dulaglutide (Verified Allergy, Unknown, 09/08/20) hydroxyzine (Verified Allergy, Unknown, 09/08/20) naloxone (Verified Allergy, Unknown, 09/08/20) rosuvastatin (Verified Allergy, Unknown, 09/08/20) Home Medications Hydrocodone/Acetaminophen 1 Each Tablet, 1 TAB PO Q6H PRN for PAIN-MODERATE (5- 7) Prescribed by: ADELFO RAMOS on 09/08/20 1255 Physical Exam-Cardiology Physical Exam Vital Signs/I&O 09/20/20 09/21/20 09/21/20 09/21/20 23:54 03:01 03:30 04:00 Temp 36.7 36.7 37.1 Pulse 89 85 98 81 Resp 20 20 22 11 B/P (MAP) 197/106 (136) 171/89 (136) 154/92 (112) 144/84 (102) Pulse Ox 95 99 100 O2 Delivery Room Air Room Air Room Air Room Air 09/21/20 09/21/20 09/21/20 09/21/20 04:21 04:22 04:45 05:00 Pulse 98 94 98 Resp 11 32 B/P (MAP) 136/90 (106) Pulse Ox 97 97 O2 Delivery Nasal Cannula Room Air Nasal Cannula O2 Flow Rate 2.00 2.00 09/21/20 09/21/20 06:00 07:30 Temp 36.5 Pulse 95 B/P (MAP) 110/95 (100) Pulse Ox 99 O2 Delivery Nasal Cannula O2 Flow Rate 2.00 Capillary Refill : Less Than 3 Seconds Constitutional: AAO x 3, well-developed, well-nourished HEENT: PERRL, hearing is well preserved, oral hygience is good Neck: No carotid bruit; carotid pulses are 2 + bilaterally Respiratory: No accessory muscle use, No respiratory distress; chest expansion is symmetric, chest is bilaterally symmetric, lungs clear to auscultation Cardiovascular: regular rate-rhythm; No JVD; S1 and S2, systolic murmur Gastrointestinal: No tender; soft, round, audible bowel sounds Extremities: no lower extremity edema bilateral Neurologic/Psychiatric: grossly intact (moves all extremities; oriented x 3, however, convseration is non-sensical at times) Skin: No rash on exposed areas, No ulcerations on exposed areas Data Review Labs Laboratory Tests 09/20/20 23:59: Glucometer 263H 09/21/20 00:03: Urine Color YELLOW, Urine Clarity CLEAR, Urine pH 5.0, Urine Specific [place] >=1.030, Urine Protein TRACEH, Urine Glucose (UA) 3+H, Urine Ketones 1+H, Urine Nitrite NEGATIVE, Urine Bilirubin NEGATIVE, Urine Urobilinogen 0.2, Urine Leukocyte Esterase NEGATIVE, Urine RBC (Auto) NEGATIVE, Urine RBC NONE, Urine WBC NONE, Urine Squamous Epithelial Cells 2-5, Urine Crystals NONE, Urine Bacteria NEGATIVE, Urine Casts NONE, Urine Mucus MODERATEH, Urine Culture Indicated NO, Urine Opiates Screen NEGATIVE, Urine Oxycodone Screen NEGATIVE, Urine Methadone Screen NEGATIVE, Urine Propoxyphene Screen NEGATIVE, Urine Barbiturates Screen NEGATIVE, Ur Tricyclic Antidepressants Screen NEGATIVE, Urine Phencyclidine Screen NEGATIVE, Urine Amphetamines Screen NEGATIVE, Urine Methamphetamines Screen NEGATIVE, Urine Benzodiazepines Screen NEGATIVE, Urine Cocaine Screen NEGATIVE, Urine Cannabinoids Screen POSITIVEH 09/21/20 02:15: SARS-CoV-2 RNA (RT-PCR) Not Detected 09/21/20 04:35: White Blood Count 5.6, Red Blood Count 4.54, Hemoglobin 13.2L, Hematocrit 39L, Mean Corpuscular Volume 87, Mean Corpuscular Hemoglobin 29, Mean Corpuscular Hemoglobin Concent 34, Red Cell Distribution Width 13.2, Platelet Count 203, Mean Platelet Volume 9.3, Immature Granulocyte % (Auto) 0, Neutrophils (%) (Auto) 66, Lymphocytes (%) (Auto) 25, Monocytes (%) (Auto) 8, Eosinophils (%) (Auto) 0, Basophils (%) (Auto) 1, Neutrophils # (Auto) 3.6, Lymphocytes # (Auto) 1.4, Monocytes # (Auto) 0.5, Eosinophils # (Auto) 0.0, Basophils # (Auto) 0.0, Immature Granulocyte # (Auto) 0.0, Sodium Level 142, Potassium Level 3.5L, Chloride Level 108H, Carbon Dioxide Level 19L, Anion Gap 15H, Blood Urea Nitrogen 22H, Creatinine 0.85, Estimat Glomerular Filtration Rate 92, BUN/Creatinine Ratio 26, Glucose Level 270H, Lactic Acid Level 0.86, Calcium Level 8.9, Phosphorus Level 3.1, Magnesium Level 2.1, Troponin I 0.070H Radiology NAME: HEAD,MARY JANE Ortiz [facility] REC#: [id number] PT STATUS: ADM IN : 1960 PHYSICIAN: RAVI MCDUFFIE DO ADMIT DATE: 09/21/20/ICU Signed Date of Exam:09/21/20 CHEST 1 VIEW, AP/PA ONLY CHEST 1 VIEW, AP/PA ONLY Indication: Hypertension and altered mental status Comparison: None available Findings: No focal airspace disease in the visualized lungs. Please note that the posterior lower lobes are poorly evaluated by portable radiography. No pleural effusion or pneumothorax. Status post aortic valve replacement. Normal mediastinal contours. No cardiomegaly. Impression: 1. No acute cardiopulmonary process by portable radiography. Dictated by: Dictated on workstation # [id number] Dict: 09/21/20 0654 Trans: 09/21/2055 [facility] [id number] Interpreted by: NORRIS ALFRED MD Electronically signed by: NORRIS ALFRED MD 09/21/2055 NAME: MARY JANE IVORY [facility] REC#: [id number] PT STATUS: ADM IN : 1960 PHYSICIAN: RAVI MCDUFFIE DO ADMIT DATE: 09/21/20/ICU Draft Date of Exam:09/21/20 CT HEAD WO-R/O STROKE Clinical indication: Patient with confusion and hypertension. Exam: Axial CT scan of the brain without IV contrast with coronal and sagittal reformatted images. Auto Exposure Controls were utilized during the CT exam to meet ALARA standards for radiation dose reduction. Comparison: None. Findings: There is skull streak artifact which obscures portions of the brainstem, posterior fossa, and portions of the brain near the skull. There is no evidence of acute cerebral infarct, intracranial hemorrhage, or gross mass effect. Mild brain parenchymal volume loss is seen. There are small patchy areas of low-attenuation white matter changes involving both cerebral hemispheres, likely representing mild chronic small vessel ischemic disease. There is normal arevalo-white matter distinction. There is no significant midline shift or herniation. There is no evidence of hydrocephalus. The basal cisterns are unremarkable. The skull, extracranial soft tissue, and orbits are unremarkable. The paranasal sinuses are unremarkable. Temporal bones show no significant abnormality. Impression: 1: Age-related brain parenchymal changes with no acute intracranial process. I agree with [facility] report. Dictated on workstation # [id number] Dict: 09/21/20 0549 Trans: 09/21/20 0555 [facility] [id number] Interpreted by: AVERY MCLEOD MD Electronically signed by: ECG Impression ECG Comment RBBB A/P-Cardiology Assessment/Admission Diagnosis Mildly elevated troponin - prob Type 2 FL d/t uncontrolled HTN, but cannot exclude NSTEMI HTN - improved H/O Aortic valve replacement - states Bovine valve done in 2014 at [facility] in [place] Reports no history of CAD, no report of coronary intervention or surgery HLD - intolerant to statins per medical history RBBB - chronic per ED report who spoke to [facility] 2 Sleep apnea - CPAP tx Hypokalemia UDS + for marijuana on 09-20-20 Depression Discussion and Recomendations Mildly elevated troponin prob Type 2 FL d/t uncontrolled HTN, however can not exclude NSTEMI. 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
[2020-09-21] MEDS ORDERED: meTOprolol SUCCINATE 100 MG (TOPROL XL) TAB PO SCH (09:00)
[2020-09-21] MEDS ORDERED: NITROGLYCERIN 2% OINT 1 GM UNIT DOSE PACKET TOP SCH (09:00)
[2020-09-21] MEDS ORDERED: ASPIRIN E.C. 81 MG (ECOTRIN) TAB PO SCH (09:00)
--- NOTE | 2020-09-21 09:37 | Tele-ICU Consult ---
History of Present Illness History of Present Illness Date Seen by Provider: Sep 21, 2020 Time Seen by Provider: 09:37 Date of Admission Allergies and Home Medications Allergies Coded Allergies: Fish Containing Products (Verified Allergy, Unknown, 09/08/20) amitriptyline (Verified Allergy, Unknown, 09/08/20) atorvastatin (Verified Allergy, Unknown, 09/08/20) buprenorphine (Verified Allergy, Unknown, 09/08/20) dulaglutide (Verified Allergy, Unknown, 09/08/20) hydroxyzine (Verified Allergy, Unknown, 09/08/20) naloxone (Verified Allergy, Unknown, 09/08/20) rosuvastatin (Verified Allergy, Unknown, 09/08/20) Home Medications Hydrocodone/Acetaminophen 1 Each Tablet, 1 TAB PO Q6H PRN for PAIN-MODERATE (5- 7) Prescribed by: ADELFO RAMOS on 09/08/20 1255 Past Medical/Social/Family Hx Patient Social History Tobacco Use?: No Substance use?: Yes Substance type: Marijuana Alcohol Use?: No Pt stated abuse/neglect: No Current Status Advance Directives: No Communicates: Verbally Primary Language: Fijian Preferred Spoken Language: Fijian Is interpretation needed?: No Review of Systems Constitutional: see HPI Sepsis Event Evaluation Height, Weight, BMI Height: '" Weight: lbs. oz. kg; 35.80 BMI Method: Exam Exam Patient acknowledged, consented, and participated in this virtual visit which was conducted using real time audio/video Vital Signs Date Time Temp Pulse Resp B/P (MAP) Pulse Ox O2 Delivery O2 Flow Rate FiO2 09/21/20 07:30 36.5 09/21/20 06:00 95 110/95 (100) 99 Nasal Cannula 2.00 09/21/20 05:00 98 32 136/90 (106) 97 Nasal Cannula 2.00 09/21/20 04:45 Room Air 09/21/20 04:22 94 11 97 Nasal Cannula 2.00 09/21/20 04:21 98 09/21/20 04:00 81 11 144/84 (102) 100 Room Air 09/21/20 03:30 37.1 98 22 154/92 (112) 99 Room Air 09/21/20 03:01 36.7 85 20 171/89 (136) 95 Room Air 09/20/20 23:54 36.7 89 20 197/106 (136) Room Air Height & Weight Height: '" Weight: lbs. oz. kg; 35.80 BMI Method: General Appearance: No Apparent Distress Capillary Refill: Less Than 3 Seconds Results Lab Laboratory Tests 09/20/20 00:00 09/21/20 04:35 Assessment/Plan Assessment/Plan (Tele-ICU Physician , consultation) Available chart/ vitals / labs / Images reviewed H&P is from ER notes Patient's information available about PMH, Shx, Fhx allergy reviewed in EMR. ROS as per chart and RN report Patient admitted 09/21 [facility] Now in ICU, hemodynamically stable , asymptomatic Video assessment done using teleICU camera, rest of exam as per RN Discussed with RN. Consultants: cards A/P Mildly elevated troponin -but cannot exclude NSTEMI - as per cards HTN - improved Elev glucose - presumed DM - ISS Hypokalemia - replaced Confusion - as per RN - seems improving - await bedside MD hector and plans UDS + for marijuana on 09-20-20 Plans in collaboration with bedside consultants and IM MDs. Discussed with RN to reach out if any questions or concerns A total of 20 minutes of critical care time was devoted to this patient today, required to treat and/or prevent further deterioration of critical care condition ( as above EASTON GROSS MD Sep 21, 2020 09:37
--- NOTE | 2020-09-21 10:56 | Short Stay Summary-Hospitalist ---
History of Present Illness HPI/Chief Complaint Pt is a 60yoCM with a PMH of depression, HTN, AVR who presented to the ER due chest pain or shortness of breath. He states that he developed a dry mouth and subsequent shortness of breath. He contemplated calling EMS but it was late and he didn't want the ambulance to wake his neighbors up so he drove himself to the fire station near his house. They brought him to the ER for evaluation. He was found to have an minimally elevated troponin and was admitted for further workup. He states to me that he has been requesting to leave AMA but has been told he can' and is unsure why. He states he has no further symptoms and he just wants to be seen by his nurse quality at [facility] who did his surgery. I explained that we were concerned he could be having a heart attack due to his labs and symptoms. He is alert and oriented x4 and was able to verbalize why we recommended admission and the risks of discharge prior to medical optimization. He plans to go home and call his " sister' who will drive him to [facility] and verbalized that he could if he were having a heart attack and was wiling to accept that risk to go home. Source: patient Date Seen 09/21/20 Time Seen by a Provider: 10:56 Attending Physician Latoya Donis MD PCP No,Local Physician Referring Physician Date of Admission Sep 21, 2020 at 02:00 Home Medications & Allergies Home Medications Reviewed patient Home Medication Reconciliation performed by pharmacy medication reconciliations rvda master certified rv technician and/or nursing. Patients Allergies have been reviewed. Allergies Allergies Coded Allergies Fish Containing Products (Verified Allergy, Unknown, 09/08/20) amitriptyline (Verified Allergy, Unknown, 09/08/20) atorvastatin (Verified Allergy, Unknown, 09/08/20) buprenorphine (Verified Allergy, Unknown, 09/08/20) dulaglutide (Verified Allergy, Unknown, 09/08/20) hydroxyzine (Verified Allergy, Unknown, 09/08/20) naloxone (Verified Allergy, Unknown, 09/08/20) rosuvastatin (Verified Allergy, Unknown, 09/08/20) Past Yqqbwsf-Jiwtkr-Lkhkoc Hx Patient Social History Employed/Student: retired Tobacco Use?: No Smoking Status: Never a Smoker Substance use?: Yes Substance type: Marijuana Alcohol Use?: No Pt feels they are or have been: No Current Status Advance Directives: No Communicates: Verbally Primary Language: Spanish Preferred Spoken Language: Spanish Is interpretation needed?: No Past Medical History Surgeries: Valve Replacement Hypertension Family Medical History Reviewed Nursing Family Hx No Pertinent Family Hx Review of Systems Constitutional: No chills, No fever EENTM: no symptoms reported Respiratory: see HPI Cardiovascular: see HPI Gastrointestinal: no symptoms reported Genitourinary: no symptoms reported Musculoskeletal: no symptoms reported Skin: no symptoms reported Psychiatric/Neurological: See HPI Physical Exam Physical Exam Vital Signs Vital Signs - First Documented 09/20/20 09/21/20 09/21/20 23:54 03:01 04:22 Temp 36.7 Pulse 89 Resp 20 B/P (MAP) 197/106 (136) Pulse Ox 95 O2 Delivery Room Air O2 Flow Rate 2.00 Capillary Refill : Less Than 3 Seconds Height, Weight, BMI Height: '" Weight: lbs. oz. kg; 35.80 BMI Method: General Appearance: No Apparent Distress, Obese HEENT: PERRL/EOMI, Moist Mucous Membranes; No Scleral Icterus (L), No Scleral Icterus (R) Neck: Normal Inspection, Supple Respiratory: Lungs Clear, No Accessory Muscle Use, No Respiratory Distress Cardiovascular: Regular Rate, Rhythm, No JVD, No Murmur Gastrointestinal: Normal Bowel Sounds, Non Tender, Soft Extremity: Normal Capillary Refill, No Calf Tenderness, No Pedal Edema Neurologic/Psychiatric: Alert, Oriented x3, Normal Mood/Affect Skin: Normal Color, Warm/Dry Results Results/Procedures Labs Patient resulted labs reviewed. Imaging: Reviewed Imaging Report Imaging [facility], [place] NAME: MARY JANE EGAN [facility] REC#: [id number] PT STATUS: ADM IN : 1960 PHYSICIAN: RAVI MCDUFFIE DO ADMIT DATE: 09/21/20/ICU Signed Date of Exam:09/21/20 CHEST 1 VIEW, AP/PA ONLY CHEST 1 VIEW, AP/PA ONLY Indication: Hypertension and altered mental status Comparison: None available Findings: No focal airspace disease in the visualized lungs. Please note that the posterior lower lobes are poorly evaluated by portable radiography. No pleural effusion or pneumothorax. Status post aortic valve replacement. Normal mediastinal contours. No cardiomegaly. Impression: 1. No acute cardiopulmonary process by portable radiography. Dictated by: Dictated on workstation # [id number] Dict: 09/21/20 0654 Trans: 09/21/2055 [facility] [id number] Interpreted by: NORRIS ALFRED MD Electronically signed by: NORRIS ALFRED MD 09/21/20 0655 [facility] [place] NAME: MARY JANE EGAN [facility] REC#: [id number] PT STATUS: ADM IN : 1960 PHYSICIAN: RAVI MCDUFFIE DO ADMIT DATE: 09/21/20/ICU Signed Date of Exam:09/21/20 CT HEAD WO-R/O STROKE Clinical indication: Patient with confusion and hypertension. Exam: Axial CT scan of the brain without IV contrast with coronal and sagittal reformatted images. Auto Exposure Controls were utilized during the CT exam to meet ALARA standards for radiation dose reduction. Comparison: None. Findings: There is skull streak artifact which obscures portions of the brainstem, posterior fossa, and portions of the brain near the skull. There is no evidence of acute cerebral infarct, intracranial hemorrhage, or gross mass effect. Mild brain parenchymal volume loss is seen. There are small patchy areas of low-attenuation white matter changes involving both cerebral hemispheres, likely representing mild chronic small vessel ischemic disease. There is normal arevalo-white matter distinction. There is no significant midline shift or herniation. There is no evidence of hydrocephalus. The basal cisterns are unremarkable. The skull, extracranial soft tissue, and orbits are unremarkable. The paranasal sinuses are unremarkable. Temporal bones show no significant abnormality. Impression: 1: Age-related brain parenchymal changes with no acute intracranial process. I agree with [facility] report. Dictated by: Dictated on workstation # [id number] Dict: 09/21/20 0549 Trans: 09/21/20 1152 [facility] [id number] Interpreted by: AVERY MCLEOD MD Electronically signed by: AVERY MCLEOD MD 09/21/20 1152 Short Stay Diagnosis Discharge Diagnosis-Short Stay Admission Diagnosis NSTEMI Final Discharge Diagnosis NSTEMI Conclusion Plan NSTEMI AVR troponin elevated on arrival Declines further work up Requesting to leave AMA We discussed risks and benefits of this in the presence of julio tavera He while A&Ox4 verbalized understanding and restated the risks to me Did agree to wait to see social and political studies professor though He then abruptly left while his nurse and I were in a CODE BLUE with another patient CHELSEA TORRES MD Sep 21, 2020 10:56
--- NOTE | 2020-09-21 17:06 | Consultation-Cardiology ---
HPI-Cardiology Cardiology Consultation: Date of Consultation 09/21/20 Time Seen by a Provider: 09:00 Date of Admission Attending Physician Latoya Donis MD Admitting Physician No,Local Physician Consulting Physician VANIA MELTON MD, MA, FACP, FACC, FSCAI, CCDS HPI: Chief Complaint: Chest pain Mr. Iovry is a 60 yr old male admitted to ICU 10 from the ED. He had driven himself to the fire department and reported chest pain and SOB. He was then transferred to [facility]. He is currently not reporting any chest pain at this time. Currently, he states he never had chest pain. He only had a coughing spell for which he came to the ER and was found to have elevated bp and admistted. He does report he has had cardiac w/u and testing at [place], [place] recently. He states he feels well and does not wish to stay in the hospital anly longer. He states he wishes to leave AMA. He reports he was recently hospitalized at the [place] d/t significant depression following the passing of his dog . No report of any chest pain or SOB at this time. No c/o palpitations. No c/o LE swelling. Review of Systems-Cardiology Review of Systems Constitutional: No chills, No fever Eyes: No vision change Ears/Nose/Throat: No epistaxis, No recent hearing loss Respiratory: As described under HPI Cardiovascular: As described under HPI Gastrointestinal: No diarrhea, No nausea, No vomiting Skin: No rash on exposed areas, No ulcerations on exposed areas Psychiatric/Neurological: As described under HPI; No syncope Hematologic: No bleeding abnormalities OVB-Gushtw-Teswtk Hx Patient Social History Have you traveled recently?: No Alcohol Use?: No Substance type: Marijuana Pt feels they are or have been: No Past Medical History PMH As described under Assessment. Family Medical History Family Medical History: No reported family h/o CAD Allergies and Home Medications Allergies Coded Allergies: Fish Containing Products (Verified Allergy, Unknown, 09/08/20) amitriptyline (Verified Allergy, Unknown, 09/08/20) atorvastatin (Verified Allergy, Unknown, 09/08/20) buprenorphine (Verified Allergy, Unknown, 09/08/20) dulaglutide (Verified Allergy, Unknown, 09/08/20) hydroxyzine (Verified Allergy, Unknown, 09/08/20) naloxone (Verified Allergy, Unknown, 09/08/20) rosuvastatin (Verified Allergy, Unknown, 09/08/20) Home Medications Hydrocodone/Acetaminophen 1 Each Tablet, 1 TAB PO Q6H PRN for PAIN-MODERATE (5- 7) Prescribed by: ADELFO RAMOS on 09/08/20 9053 Patient Home Medication List Home Medication List Reviewed: Yes Physical Exam-Cardiology Physical Exam Vital Signs/I&O 09/21/20 09/21/20 09/21/20 09/21/20 06:00 07:00 07:00 07:30 Temp 36.5 Pulse 95 66 69 B/P (MAP) 110/95 (100) 110/69 (83) Pulse Ox 99 100 O2 Delivery Nasal Cannula Nasal Cannula O2 Flow Rate 2.00 2.00 09/21/20 09/21/20 09/21/20 09/21/20 08:00 08:00 09:00 10:00 Pulse 77 80 86 Resp 23 10 21 B/P (MAP) 145/83 (103) 136/78 (97) 114/82 (93) Pulse Ox 97 100 96 O2 Delivery Nasal Cannula Nasal Cannula Nasal Cannula Nasal Cannula O2 Flow Rate 2.00 2.00 2.00 2.00 09/21/20 10:45 Temp 36.6 Capillary Refill : Less Than 3 Seconds Constitutional: AAO x 3, well-developed, well-nourished HEENT: PERRL, hearing is well preserved, oral hygience is good Neck: No carotid bruit; carotid pulses are 2 + bilaterally Respiratory: No accessory muscle use, No respiratory distress; chest expansion is symmetric, chest is bilaterally symmetric, lungs clear to auscultation Cardiovascular: regular rate-rhythm; No JVD; S1 and S2, systolic murmur Gastrointestinal: No tender; soft, round, audible bowel sounds Extremities: no lower extremity edema bilateral Neurologic/Psychiatric: grossly intact (moves all extremities; oriented x 3, however, convseration is non-sensical at times) Skin: No rash on exposed areas, No ulcerations on exposed areas Data Review Labs Laboratory Tests 09/20/20 23:59: Glucometer 263H 09/21/20 00:03: Urine Color YELLOW, Urine Clarity CLEAR, Urine pH 5.0, Urine Specific Cranks >=1.030, Urine Protein TRACEH, Urine Glucose (UA) 3+H, Urine Ketones 1+H, Urine Nitrite NEGATIVE, Urine Bilirubin NEGATIVE, Urine Urobilinogen 0.2, Urine Leukocyte Esterase NEGATIVE, Urine RBC (Auto) NEGATIVE, Urine RBC NONE, Urine WBC NONE, Urine Squamous Epithelial Cells 2-5, Urine Crystals NONE, Urine Bacteria NEGATIVE, Urine Casts NONE, Urine Mucus MODERATEH, Urine Culture Indicated NO, Urine Opiates Screen NEGATIVE, Urine Oxycodone Screen NEGATIVE, Urine Methadone Screen NEGATIVE, Urine Propoxyphene Screen NEGATIVE, Urine Barbiturates Screen NEGATIVE, Ur Tricyclic Antidepressants Screen NEGATIVE, Urine Phencyclidine Screen NEGATIVE, Urine Amphetamines Screen NEGATIVE, Urine Methamphetamines Screen NEGATIVE, Urine Benzodiazepines Screen NEGATIVE, Urine Cocaine Screen NEGATIVE, Urine Cannabinoids Screen POSITIVEH 09/21/20 02:15: SARS-CoV-2 RNA (RT-PCR) Not Detected 09/21/20 04:35: White Blood Count 5.6, Red Blood Count 4.54, Hemoglobin 13.2L, Hematocrit 39L, Mean Corpuscular Volume 87, Mean Corpuscular Hemoglobin 29, Mean Corpuscular Hemoglobin Concent 34, Red Cell Distribution Width 13.2, Platelet Count 203, Mean Platelet Volume 9.3, Immature Granulocyte % (Auto) 0, Neutrophils (%) (Auto) 66, Lymphocytes (%) (Auto) 25, Monocytes (%) (Auto) 8, Eosinophils (%) (Auto) 0, Basophils (%) (Auto) 1, Neutrophils # (Auto) 3.6, Lymphocytes # (Auto) 1.4, Monocytes # (Auto) 0.5, Eosinophils # (Auto) 0.0, Basophils # (Auto) 0.0, Immature Granulocyte # (Auto) 0.0, Sodium Level 142, Potassium Level 3.5L, Chloride Level 108H, Carbon Dioxide Level 19L, Anion Gap 15H, Blood Urea Nitrogen 22H, Creatinine 0.85, Estimat Glomerular Filtration Rate 92, BUN/Creatinine Ratio 26, Glucose Level 270H, Lactic Acid Level 0.86, Calcium Level 8.9, Phosphorus Level 3.1, Magnesium Level 2.1, Troponin I 0.070H 09/21/20 11:02: Glucometer 192H A/P-Cardiology Assessment/Admission Diagnosis Mildly elevated troponin, prob Type 2 CA d/t uncontrolled HTN, but cannot exclude NSTEMI HTN, severe at preseentation - improved H/O Aortic valve replacement - states Bovine valve done in 2014 at [facility] in [place] - Echo on 09/21/20: mod conc LVH, LVEF 70-75%, aortic valve not well visualized, no evidence of or wall motion abnormality, PASP appears to be within normal limits Reports no history of CAD, no report of coronary intervention or surgery HLD - intolerant to statins per medical history RBBB - chronic per ER physician report who [facility] Sleep apnea - CPAP tx Hypokalemia UDS + for marijuana on 09-20-20 Depression Discussion and Recomendations We advise further w/u as an in-pt, but he refuses and states he will f/u as an out pt with his established content administrator Risk factor modification reviewed. Med compliance advised Discussed with VANIA Maria MD FACP FAC CCDS Sep 21, 2020 17:06
[2020-09-21] MEDS ORDERED: ENOXAPARIN 300 MG/3 ML (LOVENOX) MULTI-DOSE VIAL SQ SCH (18:00)
== END 2020-09-21 11:30 | disposition left against medical advice (07) ==
LOC: EDUNIT# 23:40 → ER 23:41 → ICU 09-21 02:00 → INTOOBSV 09-21 02:00
PROVIDERS: ADMIT Internal Medicine; ATTEND Internal Medicine
DX: I21.4 Non-ST elevation (NSTEMI) myocardial infarction (principal); I10 Essential (primary) hypertension; E11.9 Type 2 diabetes mellitus without complications; I25.10 Atherosclerotic heart disease of native coronary artery without angina pectoris; Z95.1 Presence of aortocoronary bypass graft; F29 Unspecified psychosis not due to a substance or known physiological condition; Z95.2 Presence of prosthetic heart valve; E78.5 Hyperlipidemia, unspecified; I45.10 Unspecified right bundle-branch block; G47.30 Sleep apnea, unspecified; E87.6 Hypokalemia; F32.9 Major depressive disorder, single episode, unspecified
CPT/HCPCS: 70450; 71045; 80048; 80053; 80306; 81000; 82140; 82150; 82550; 82553; 82947; 83605; 83690; 83735; 83874; 83880; 84100; 84443; 84484; 85025; 85379; 85610; 85730; 86141; 87081; 87636; 93005 ×2; 93041; 93306; 96372; 99291; G0480 ×2; 36415; 80320; 80329; G0378